=== PATIENT | female | born 1980 | race Caucasian/White ===

== ENCOUNTER 2016-04-25 19:40 | Emergency (ER) | payer MEDICAID ==
[~2016-04-25] VITALS: Ht 152.4 cm; Wt 50.0 kg
[~2016-04-25 19:40] MED LIST: ACET325T33 PO; ASPI1TAB2 PO; CLIN-73 PO; GLIP5TAB13 PO; GUAI-47 PO; HYDR-902 PO; IBUP-1542 PO; LORA1TAB PO; MTF1000T PO; OMEP40CA6 PO; PANT40VI7 ORAL; SITA50TA2 PO; TRAM50TA2 PO
[2016-04-25 20:30] VITALS: Ht 152.4 cm; Wt 50.0 kg
[2016-04-25] MEDS ORDERED: KETOROLAC 60 MG INJ IM STA (21:18)
[2016-04-25] MEDS ORDERED: CYCL-319 PO (21:20)
[2016-04-25] MEDS ORDERED: NAPR-260 PO (21:20)
[2016-04-25] MEDS ORDERED: HYDR-906 PO (21:20)
[2016-04-25 22:00] VITALS: BP 127/79; PULSE 75; RESP 18; TEMP 98.4
--- NOTE | 2016-04-26 04:38 | ERD ---
DATE OF SERVICE: HISTORY OF PRESENT ILLNESS: The patient is a 36-year-old female complaining of upper back pain. Th e patient states it has been going on for the last 4 days. It is constant pain. It is located medi al to the scapula. It hurts worse with movement and it is reproducible. She is not taking medicati ons for her symptoms. Describes it as a sharp pain at 8/10. She has no chest pain, no shortness of breath, no troubles breathing. She has not had any recent accidents or falls. PAST MEDICAL HISTORY: Denies medical problems. ALLERGIES: PENICILLIN. PAST SURGICAL HISTORY: . REVIEW OF SYSTEMS: A 12-point review of systems was done. Refer to HPI for positives. All other s ystems negative. PHYSICAL EXAMINATION VITAL SIGNS: Temperature is 98.2, pulse 95, blood pressure is 136/77, respiratory rate 20, O2 satur ation 98% on room air. Pain intensity 8/10. GENERAL: The patient is well-appearing, well-nourished, no acute distress. HEART: Regular rate and rhythm. No murmurs, clicks, rubs, or gallops. No S3 or S4. CHEST: Clear to auscultation bilaterally. There are no rales, wheezes, or rhonchi. HEENT: Atraumatic. Conjunctivae are pink. Pupils equal, round, and reactive to light. There is n o scleral icterus. Tympanic membranes clear bilaterally. Oropharynx clear. No nystagmus or photop hobia. SKIN: There is no apparent rash or petechia. The skin is warm and dry. EXTREMITIES: The patient has tenderness to palpation over medial to the left scapula. There is no obvious deformity. No midline tenderness. EMERGENCY ROOM COURSE: The patient was given Toradol in the ER. DIAGNOSIS: Rhomboid tendinitis. MEDICAL DECISION MAKING: The patient's pain is reproducible. The patient has full range of motion of extremities. I have low suspicion for PE. Low suspicion for infectious etiology. Low suspicion for acute fracture or dislocation. DISCHARGE: The patient is discharged stable. The patient is given prescription for [place], naproxen , and Flexeril and told to follow up with primary care within 1 to 2 days for reevaluation. The pat ient was told if symptoms progress or worsen to return to the ER. All other questions answered at t elizabeth of discharge. Discharge summary given at the time of departure. The patient understood and com plied with plan. Dictated By: HILARIA HOLMAN/NAYELY Conf#: [id number] DID#: [id number]
== END 2016-04-25 22:08 | disposition home or self-care (01) ==
LOC: FTE 19:40
DX: M77.8 Other enthesopathies, not elsewhere classified (principal); E11.9 Type 2 diabetes mellitus without complications
CPT/HCPCS: 96372; J1885; Z7502

== ENCOUNTER 2016-05-10 08:12 | Emergency (ER) | payer MEDICAID ==
[~2016-05-10] VITALS: Wt 48.5 kg
[~2016-05-10 08:12] MED LIST changes: +CYCL-319 PO; +HYDR-906 PO; +NAPR-260 PO
--- NOTE | 2016-05-10 08:55 | ERD ---
ER Documentation Chief Complaint Date/Time DATE: 05/10/16 TIME: 08:52 Chief Complaint CHEST PAIN SINCE THIS AM HPI This a 36-year-old female who presents the emergency department today complaining of chest pain and some shortness of breath that started last night. Patient states that she has pain when she takes a deep breath. States she took aspirin for the pain. Denies any fevers or chills, oral contraceptive use or prolonged travel. Denies cigarette smoke. ROS All systems reviewed and are negative except as per history of present illness. Medications Home Meds Active Scripts Acetaminophen* (Tylophen*) 500 Mg Capsule, 1 CAP PO Q6H Y for PAIN AND OR ELEVATED TEMP, #30 CAP Prov:PENNIE VITAL PA-C 05/10/16 Naproxen* (Naprosyn*) 500 Mg Tablet, 500 MG PO BID Y for PAIN AND/OR INFLAMMATION, #30 TAB Prov:PENNIE VITAL PA-C 05/10/16 Hydrocodone/Acetaminophen ([place] 5-325 Tablet) 1 Each Tablet, 1 TAB PO Q6H Y for PAIN, #7 TAB Prov:BERTA COMBS PA-C 04/25/16 Cyclobenzaprine Hcl* (Cyclobenzaprine Hcl*) 10 Mg Tablet, 10 MG PO TID, #15 TAB Prov:BERTA COMBS PA-C 04/25/16 Naproxen* (Naprosyn*) 500 Mg Tablet, 500 MG PO BID Y for PAIN AND/OR INFLAMMATION, #30 TAB Prov:BERTA COMBS PA-C 04/25/16 Acetaminophen* (Tylenol*) 325 Mg Tablet, 2 TAB PO Q6 Y for PAIN AND OR ELEVATED TEMP, #20 TAB Prov:RONEL HOPKINS, ROMAIN 02/08/16 Clindamycin Hcl* (Clindamycin Hcl*) 300 Mg Capsule, 600 MG PO TID for 10 Days, CAP Prov:RONEL HOPKINS, ROMAIN 02/08/16 Omeprazole* (Omeprazole*) 40 Mg Capsule.dr, 40 MG PO DAILY, #21 CAP Prov:KYLIE MACKEY DO 12/27/15 Hydrocodone/Acetaminophen ([place] 10-325 Tablet) 1 Each Tablet, 1 TAB PO Q6H Y for PAIN, #18 TAB Prov:KYLIE MACKEY DO 12/27/15 Lorazepam* (Lorazepam*) 1 Mg Tablet, 1 MG PO DAILY for 10 Days, #10 TAB 0 Refills Prov:DAYNE COOPER PA-C 10/31/15 Tramadol HCl (Tramadol HCl) 50 Mg Tablet, 50 MG PO Q4 Y for PAIN, #20 TAB Prov:JENISE SHERMAN MD 10/15/15 Pantoprazole* (Protonix* IV) 40 Mg Soln, 40 MG ORAL DAILY@06 for 30 Days Prov:CHELSIE OLIVAS 02/11/15 Sitagliptin* (Januvia*) 50 Mg Tab, 25 MG PO DAILY for 30 Days, TAB Prov:CHELSIE OLIVAS 02/11/15 Glipizide* (Glipizide*) 5 Mg Tablet, 5 MG PO AC BREAKFAST DINNER for 30 Days, TAB 5 Refills Prov:CHELSIE OLIVAS 02/11/15 Metformin* (Glucophage*) 1,000 Mg Tablet, 1000 MG PO BID for 30 Days, TAB 5 Refills Prov:CHELSIE OLIVAS 02/11/15 Vhferfc-Fkrgrloozxemm-Eynzpbzh* (Excedrin Extra Strength*) 250-250-65 Mg Tablet , 1 TAB PO Q6H Y for PAIN for 30 Days, TAB Prov:DEANN AGUILLON PA-C 11/26/14 Guaifenesin-Dextromethorphan* (Mucinex* DM) 600-30 Mg Tabsr, 1 TAB PO Q12, #14 TAB Prov:JENISE SHERMAN MD 10/25/14 Ibuprofen* (Motrin*) 600 Mg Tab, 600 MG PO Q6, #20 TAB Prov:JENISE SHERMAN MD 10/25/14 Allergies Allergies: Coded Allergies: Penicillins (Verified Allergy, Severe, 05/10/16) PMhx/Soc History of Surgery: Yes ( 8 YEARS AGO ) Anesthesia Reaction: No Hx Neurological Disorder: No Hx Respiratory Disorders: No Hx Cardiac Disorders: No Hx Psychiatric Problems: No Hx Miscellaneous Medical Probl: Yes (DM) Hx Alcohol Use: No Hx Substance Use: No Hx Tobacco Use: No Smoking Status: Never smoker Physical Exam Vitals Vital Signs Date Time Temp Pulse Resp B/P Pulse Ox O2 Delivery O2 Flow Rate FiO2 05/10/16 08:13 98.0 113 18 134/92 99 Physical Exam Const: Anxious Head: Atraumatic Eyes: Normal Conjunctiva ENT: Normal External Ears, Nose and Mouth. Neck: Full range of motion..~ No meningismus. Resp: Clear to auscultation bilaterally. No absent breath sounds. No wheezing. Cardio: Regular rate and rhythm, no murmurs Abd: Soft, mild epigastric tenderness non distended. Normal bowel sounds Skin: No petechiae or rashes Neur: Awake and alert Psych: Normal Mood and Affect Results 24 hrs Current Medications Medications (Trade) Dose Ordered Sig/Peng Route PRN Reason Start Time Stop Time Status Last Admin Dose Admin Lorazepam (Ativan) 1 mg ONCE ONCE PO 05/10/16 09:00 05/10/16 09:01 DC 05/10/16 08:59 Ibuprofen (Motrin) 800 mg ONCE ONCE PO 05/10/16 09:00 05/10/16 09:01 DC 05/10/16 08:59 DIAGNOSTIC IMAGING REPORT Patient: IAN KENNY : 1980 Age: 36 Sex: F MR #: [id number] DOS: 05/10/16 0000 Ordering MD: PENNIE VITAL PA-C Location: [facility] Room/Bed: PROCEDURE: Chest Radiograph. CLINICAL INDICATION: Chest pain. Shortness of breath. TECHNIQUE: Single frontal chest radiograph. COMPARISON: Chest radiograph 10/31/2015. FINDINGS: The cardiomediastinal silhouette is within normal limits. No infiltrate or effusion is seen. The bones are intact. IMPRESSION: 1. Unremarkable chest radiograph. RPTAT: KK .Richard Martinez MD, MD Date Time Electronically viewed and signed by .Richard Martinez MD, MD on 2016 09:15 .B/ CC: PROUSE,PENNIE M. PA-C Procedures/MDM This is a 36-year-old female who presents to the emergency department today complaining of chest pain and shortness of breath that started last night. Patient states her pain is worse with deep inspiration and she described it as substernal and on the left side of her chest. I did ask the patient about stress in her life and she said that she is having a lot of stress because her family in [place] [facility] [place] is having a lot of difficulties. States that she has some pain in her face. Patient has only taken aspirin for pain. Given the patient's complaints I did obtain an EKG and chest x-ray. EKG read and interpreted by Dr. Cassidy [address] elevation. No QT prolongation. Sinus tachycardia. Chest x-ray is unremarkable. There is no infiltrate or effusion. Low suspicion for pneumonia, PE, abscess, pleural effusion, pneumothorax. Patient has chest pain of uncertain etiology however it may be related to anxiety related symptoms given her complaints of pain in her face and inability to sleep at night and her concerns about her family back in [place] [place]. Patient does not have any risk factors for PE at this time. Patient may also have costochondritis. Patient was given Ativan and Motrin here in the emergency department and symptoms improved. When I went to notify patient of EKG and chest x-ray findings patient was telling me that she was not sleeping at night and was requesting medication to help her sleep. Explained to the patient she would need to get this from her primary care doctor that this was not something that was prescribed here in the emergency room at this time.. She will be given a prescription for Tylenol and Naprosyn for home. I do not feel the patient would benefit from benzodiazepines at home as I have concerned that the medication would be used and appropriately or to help her sleep. At this time the patient is stable for discharge and outpatient management. Patient should follow up with their PCP in the next 1-2 days. She was given a list of community resources. They may return to the emergency department sooner for any persistent or worsening of symptoms. Patient understood and agreed with the plan. Departure Diagnosis: Primary Impression: Chest pain Chest pain type: unspecified Qualified Code: R07.9 - Chest pain, unspecified type Additional Impression: Anxiety Condition: PENNIE Howell PA-C May 10, 2016 08:55
[2016-05-10] MEDS ORDERED: LORAZEPAM 1 MG TAB PO ONE (09:00)
[2016-05-10] MEDS ORDERED: IBUPROFEN 800 MG TAB PO ONE (09:00)
--- NOTE | 2016-05-10 09:15 | RADRPT ---
PROCEDURE: Chest Radiograph. CLINICAL INDICATION: Chest pain. Shortness of breath. TECHNIQUE: Single frontal chest radiograph. COMPARISON: Chest radiograph 10/31/2015. FINDINGS: The cardiomediastinal silhouette is within normal limits. No infiltrate or effusion is seen. Th e bones are intact. IMPRESSION: 1. Unremarkable chest radiograph. RPTAT: KK .Richard Martinez MD, MD Date Time Electronically viewed and signed by .Richard Martinez MD, MD on 05/10/2016 09:15 .B/
[2016-05-10] MEDS ORDERED: NAPR-260 PO (10:05)
[2016-05-10] MEDS ORDERED: ACET500C5 PO (10:06)
[2016-05-10 10:14] VITALS: BP 138/78; PULSE 92; RESP 18; TEMP 98
== END 2016-05-10 10:15 | disposition home or self-care (01) ==
LOC: FTE 08:12
DX: R07.9 Chest pain, unspecified (principal); F41.9 Anxiety disorder, unspecified; E11.9 Type 2 diabetes mellitus without complications; Z79.82 Long term (current) use of aspirin; Z79.84 Long term (current) use of oral hypoglycemic drugs
CPT/HCPCS: 71010; 93005; Z7502; Z7610

== ENCOUNTER 2016-08-20 16:55 | Emergency (ER) | payer MEDICAID ==
[~2016-08-20] VITALS: Ht 149.9 cm; Wt 52.0 kg
[~2016-08-20 16:55] MED LIST changes: +ACET500C5 PO
[2016-08-20 17:05] VITALS: Ht 149.9 cm; Wt 52.0 kg
[2016-08-20] MEDS ORDERED: IBUP-1542 PO (17:29)
[2016-08-20] MEDS ORDERED: IBUPROFEN 600 MG TAB PO ONE (17:30)
--- NOTE | 2016-08-20 17:39 | ERD ---
ER Documentation Chief Complaint Date/Time DATE: 08/20/16 TIME: 17:36 Chief Complaint LEFT EAR PAIN X1HR HPI This is a 36-year-old female presents to the ER for left ear pain that started an hour ago after she got water in her ear. Patient states that now she feels as if she can hear clearly in her ear is hurting. Patient was completely asymptomatic before this. Patient denies any fevers or chills. She denies any discharge from the ear. She denies any trauma to the ear. Patient denies any headaches. ROS 12 point review of systems was done, all negative except per HPI. Medications Home Meds Active Scripts Ibuprofen* (Motrin*) 600 Mg Tab, 600 MG PO Q6, #30 TAB Prov:INDIANA BRIGHT 08/20/16 Acetaminophen* (Tylophen*) 500 Mg Capsule, 1 CAP PO Q6H Y for PAIN AND OR ELEVATED TEMP, #30 CAP Prov:PENNIE VITAL PA-C 05/10/16 Naproxen* (Naprosyn*) 500 Mg Tablet, 500 MG PO BID Y for PAIN AND/OR INFLAMMATION, #30 TAB Prov:PENNIE VITAL PA-C 05/10/16 Hydrocodone/Acetaminophen ([place] 5-325 Tablet) 1 Each Tablet, 1 TAB PO Q6H Y for PAIN, #7 TAB Prov:BERTA COMBS PA-C 04/25/16 Cyclobenzaprine Hcl* (Cyclobenzaprine Hcl*) 10 Mg Tablet, 10 MG PO TID, #15 TAB Prov:BERTA COMBS PA-C 04/25/16 Naproxen* (Naprosyn*) 500 Mg Tablet, 500 MG PO BID Y for PAIN AND/OR INFLAMMATION, #30 TAB Prov:BERTA COMBS PA-C 04/25/16 Acetaminophen* (Tylenol*) 325 Mg Tablet, 2 TAB PO Q6 Y for PAIN AND OR ELEVATED TEMP, #20 TAB Prov:RONEL HOPKINS, ROMAIN 02/08/16 Clindamycin Hcl* (Clindamycin Hcl*) 300 Mg Capsule, 600 MG PO TID for 10 Days, CAP Prov:RONEL HOPKINS, ROMAIN 02/08/16 Omeprazole* (Omeprazole*) 40 Mg Capsule.dr, 40 MG PO DAILY, #21 CAP Prov:KYLIE MACKEY DO 12/27/15 Hydrocodone/Acetaminophen ([place] 10-325 Tablet) 1 Each Tablet, 1 TAB PO Q6H Y for PAIN, #18 TAB Prov:KYLIE MACKEY DO 12/27/15 Lorazepam* (Lorazepam*) 1 Mg Tablet, 1 MG PO DAILY for 10 Days, #10 TAB 0 Refills Prov:DAYNE COOPER PA-C 10/31/15 Tramadol HCl (Tramadol HCl) 50 Mg Tablet, 50 MG PO Q4 Y for PAIN, #20 TAB Prov:EJNISE SHERMAN MD 10/15/15 Pantoprazole* (Protonix* IV) 40 Mg Soln, 40 MG ORAL DAILY@06 for 30 Days Prov:CHELSIE OLIVAS 02/11/15 Sitagliptin* (Januvia*) 50 Mg Tab, 25 MG PO DAILY for 30 Days, TAB Prov:CHELSIE OLIVAS 02/11/15 Glipizide* (Glipizide*) 5 Mg Tablet, 5 MG PO AC BREAKFAST DINNER for 30 Days, TAB 5 Refills Prov:CHELSIE OLIVAS 02/11/15 Metformin* (Glucophage*) 1,000 Mg Tablet, 1000 MG PO BID for 30 Days, TAB 5 Refills Prov:CHELSIE OLIVAS 02/11/15 Eqjckzo-Nxeqynezpvupb-Opyclkir* (Excedrin Extra Strength*) 250-250-65 Mg Tablet , 1 TAB PO Q6H Y for PAIN for 30 Days, TAB Prov:DEANN AGUILLON PA-C 11/26/14 Guaifenesin-Dextromethorphan* (Mucinex* DM) 600-30 Mg Tabsr, 1 TAB PO Q12, #14 TAB Prov:JENISE SHERMAN MD 10/25/14 Ibuprofen* (Motrin*) 600 Mg Tab, 600 MG PO Q6, #20 TAB Prov:JENISE SHERMAN MD 10/25/14 Allergies Allergies: Coded Allergies: Penicillins (Verified Allergy, Severe, 08/20/16) PMhx/Soc History of Surgery: Yes ( 8 YEARS AGO ) Anesthesia Reaction: No Hx Neurological Disorder: No Hx Respiratory Disorders: No Hx Cardiac Disorders: No Hx Psychiatric Problems: No Hx Miscellaneous Medical Probl: Yes (DM) Hx Alcohol Use: No Hx Substance Use: No Hx Tobacco Use: No Smoking Status: Never smoker Physical Exam Vitals Vital Signs Date Time Temp Pulse Resp B/P Pulse Ox O2 Delivery O2 Flow Rate FiO2 08/20/16 17:05 99.0 115 20 132/90 98 Physical Exam GENERAL: The patient is well developed and appropriate for usual state of health , in no apparent distress. HEENT: Atraumatic. Conjunctivae are pink. Pupils equal, round, and reactive to light. Extraocular muscles are grossly intact. Bilateral tympanic membranes are clear with no evidence of erythema, effusion or dulling of the light reflex. The oropharynx is clear with no erythema or exudates. There is no redness or swelling to the face. CHEST: Clear to auscultation bilaterally. There are no rales, wheezes or rhonchi. HEART: Regular rate and rhythm. No murmurs, clicks, rubs or gallops. NEURO: Cranial nerves II through XII are intact. No focal neurological deficits. Awake and alert. SKIN: . The skin is warm and dry. Results 24 hrs Current Medications Medications (Trade) Dose Ordered Sig/Peng Route PRN Reason Start Time Stop Time Status Last Admin Dose Admin Ibuprofen (Motrin) 600 mg ONCE ONCE PO 08/20/16 17:30 08/20/16 17:31 DC 08/20/16 17:31 Procedures/MDM This is a 36-year-old female presents to the ER for left ear pain. Patient developed ear pain after she got water in her ear from the shower. At this time physical examination is completely benign suspicion for low. Patient likely cannot hear because there is a lot of water in her ear. I doubt mastoiditis. Doubt intracranial pathology. Patient is neurologically intact with no focal neurological deficits. Patient is to follow-up with her primary care doctor within 1-2 days or return to ER sooner if symptoms worsen. My medical decision making was shared with the patient she understands and agrees with plan. Departure Diagnosis: Primary Impression: Otalgia Condition: Stable Patient Instructions: Normal Exam, (Child) (Adult) Additional Instructions: Llame al doctor MAANA y dael abbi YARIEL PARA DENTRO DE 1-2 SWANSON.Dgale a la secretaria que nosotros le instruimos hacer esta yariel.Avise o llame si pichardo condicin se empeora antes de la yariel. Regresa aqui si peor o no mejor. [place] BRIGHT Aug 20, 2016 17:39
== END 2016-08-20 18:05 | disposition home or self-care (01) ==
LOC: FTE 16:55
DX: H92.02 Otalgia, left ear (principal); E11.9 Type 2 diabetes mellitus without complications; Z79.82 Long term (current) use of aspirin; Z79.84 Long term (current) use of oral hypoglycemic drugs
CPT/HCPCS: Z7502; Z7610; 99283

== ENCOUNTER 2016-10-09 16:27 | Emergency (ER) | payer MEDICAID ==
[~2016-10-09] VITALS: Wt 50.9 kg
[2016-10-09 17:58] LABS: URINE BLOOD (Dip) POC Negative (NEGATIVE)
[2016-10-09] MEDS ORDERED: FLUC150T17 PO (18:19)
[2016-10-09] MEDS ORDERED: MICO24CM3 VAG (18:20)
[2016-10-09] MEDS ORDERED: METR500T PO (18:21)
[2016-10-09 18:33] VITALS: BP 141/81; PULSE 91; RESP 18
--- NOTE | 2016-10-09 18:40 | ERD ---
ER Documentation Chief Complaint Date/Time DATE: 10/09/16 TIME: 18:30 Chief Complaint vaginal itchiness HPI This is a 36-year-old female presents to the ER with vaginal itching for the last 3 days. Patient states that she does have some foul-smelling yellow discharge. Patient has had this in the past that she does have a past medical history of diabetes. Patient denies any fevers or chills. She denies any lesions to her vagina. Patient denies any pelvic pain. ROS 12 point review of systems was done, all negative except per HPI. Medications Home Meds Active Scripts Metronidazole* (Flagyl*) 500 Mg Tablet, 500 MG PO TID for 7 Days, TAB Prov:DEANGELOINDIANA NAVAS Honey 10/09/16 Miconazole Nitrate* (Monistat 3*) 24 Gm Cmb.pf.crm, 1 APPFUL VAG HS for 3 Days, TUB X 3 Prov:DEANGELOINDIANA C 10/09/16 Fluconazole* (Diflucan*) 150 Mg Tablet, 150 MG PO ONCE, #1 TAB Prov:INDIANA BRIGHT 10/09/16 Ibuprofen* (Motrin*) 600 Mg Tab, 600 MG PO Q6, #30 TAB Prov:DEANGELOOLESYAINDIANA C 08/20/16 Acetaminophen* (Tylophen*) 500 Mg Capsule, 1 CAP PO Q6H Y for PAIN AND OR ELEVATED TEMP, #30 CAP Prov:PENNIE VITAL PA-C 05/10/16 Naproxen* (Naprosyn*) 500 Mg Tablet, 500 MG PO BID Y for PAIN AND/OR INFLAMMATION, #30 TAB Prov:PENNIE VITAL PA-C 05/10/16 Hydrocodone/Acetaminophen ([place] 5-325 Tablet) 1 Each Tablet, 1 TAB PO Q6H Y for PAIN, #7 TAB Prov:BERTA COMBS PA-C 04/25/16 Cyclobenzaprine Hcl* (Cyclobenzaprine Hcl*) 10 Mg Tablet, 10 MG PO TID, #15 TAB Prov:BERTA COMBS PA-C 04/25/16 Naproxen* (Naprosyn*) 500 Mg Tablet, 500 MG PO BID Y for PAIN AND/OR INFLAMMATION, #30 TAB Prov:BERTA COMBS PA-C 04/25/16 Acetaminophen* (Tylenol*) 325 Mg Tablet, 2 TAB PO Q6 Y for PAIN AND OR ELEVATED TEMP, #20 TAB Prov:RONEL HOPKINS, ROMAIN 02/08/16 Clindamycin Hcl* (Clindamycin Hcl*) 300 Mg Capsule, 600 MG PO TID for 10 Days, CAP Prov:RONEL HOPKINS, ROMAIN 02/08/16 Omeprazole* (Omeprazole*) 40 Mg Capsule.dr, 40 MG PO DAILY, #21 CAP Prov:KYLIE MACKEY DO 12/27/15 Hydrocodone/Acetaminophen ([place] 10-325 Tablet) 1 Each Tablet, 1 TAB PO Q6H Y for PAIN, #18 TAB Prov:KYLIE MACKEY DO 12/27/15 Lorazepam* (Lorazepam*) 1 Mg Tablet, 1 MG PO DAILY for 10 Days, #10 TAB 0 Refills Prov:DAYNE COOPER PA-C 10/31/15 Tramadol HCl (Tramadol HCl) 50 Mg Tablet, 50 MG PO Q4 Y for PAIN, #20 TAB Prov:JENISE SHERMAN MD 10/15/15 Pantoprazole* (Protonix* IV) 40 Mg Soln, 40 MG ORAL DAILY@06 for 30 Days Prov:CHELSIE OLIVAS 02/11/15 Sitagliptin* (Januvia*) 50 Mg Tab, 25 MG PO DAILY for 30 Days, TAB Prov:CHELSIE OLIVAS 02/11/15 Glipizide* (Glipizide*) 5 Mg Tablet, 5 MG PO AC BREAKFAST DINNER for 30 Days, TAB 5 Refills Prov:CHELSIE OLIVAS 02/11/15 Metformin* (Glucophage*) 1,000 Mg Tablet, 1000 MG PO BID for 30 Days, TAB 5 Refills Prov:CHELSIE OLIVAS 02/11/15 Etfhmdl-Fgrdozbtbvrtj-Gdobwevc* (Excedrin Extra Strength*) 250-250-65 Mg Tablet , 1 TAB PO Q6H Y for PAIN for 30 Days, TAB Prov:DEANN AGUILLON PA-C 11/26/14 Guaifenesin-Dextromethorphan* (Mucinex* DM) 600-30 Mg Tabsr, 1 TAB PO Q12, #14 TAB Prov:JENISE SHERMAN MD 10/25/14 Ibuprofen* (Motrin*) 600 Mg Tab, 600 MG PO Q6, #20 TAB Prov:JENISE SHERMAN MD 10/25/14 Allergies Allergies: Coded Allergies: Penicillins (Verified Allergy, Severe, 10/09/16) PMhx/Soc History of Surgery: Yes ( 8 YEARS AGO ) Anesthesia Reaction: No Hx Neurological Disorder: No Hx Respiratory Disorders: No Hx Cardiac Disorders: No Hx Psychiatric Problems: No Hx Miscellaneous Medical Probl: Yes (DM) Hx Alcohol Use: No Hx Substance Use: No Hx Tobacco Use: No Smoking Status: Never smoker Physical Exam Vitals Vital Signs Date Time Temp Pulse Resp B/P Pulse Ox O2 Delivery O2 Flow Rate FiO2 10/09/16 16:52 98.0 97 20 124/82 97 Physical Exam GENERAL: The patient is well developed and appropriate for usual state of health , in no apparent distress. HEENT: Atraumatic. CHEST: Clear to auscultation bilaterally. There are no rales, wheezes or rhonchi. HEART: Regular rate and rhythm. No murmurs, clicks, rubs or gallops. ABDOMEN: Soft, nontender and nondistended. Good bowel sounds. No rebound or guarding. No gross peritonitis. No gross organomegaly or masses. No Harding sign or McBurney point tenderness. : Vagina is beefy red. No discharge is seen. No cervical motion tenderness. No lesions seen. NEURO: Alert and oriented. Results 24 hrs Laboratory Tests Test 10/09/16 18:04 Bedside Urine pH (LAB) 7.0 Bedside Urine Protein (LAB) 2+ Bedside Urine Glucose (UA) 0.50% Bedside Urine Ketones (LAB) Negative Bedside Urine Blood Negative Bedside Urine Nitrite (LAB) Negative Bedside Urine Leukocyte Esterase (L Negative Procedures/MDM This is a 36-year-old female presents to the ER with vaginal itching. Patient has a past medical history of diabetes and did appear to have vaginal Lakeisha. Because patient was complaining of foul-smelling yellow discharge, also be treated for bacterial vaginosis. There is no evidence of urinary tract infection on urine dip. Patient is afebrile and well-appearing. Suspicion for pyelonephritis, pelvic inflammatory disease, tubo-ovarian abscess is low. Patient is to follow-up with her primary care doctor within 1-2 days or return to ER sooner as worsen. My medical decision making shared with the patient she understands and agrees with plan.``` Departure Diagnosis: Primary Impression: Vaginal candidiasis Condition: Stable Patient Instructions: Vaginitis, Lakeisha Additional Instructions: Call your primary care doctor TOMORROW for an appointment during the next 1-2 days.See the doctor sooner or return here if your condition worsens before your appointment time. [place] BRIGHT Oct 09, 2016 18:35
== END 2016-10-09 18:34 | disposition home or self-care (01) ==
LOC: FTE 16:27
DX: B37.3 Candidiasis of vulva and vagina (principal); E11.9 Type 2 diabetes mellitus without complications; Z79.84 Long term (current) use of oral hypoglycemic drugs; Z79.82 Long term (current) use of aspirin
CPT/HCPCS: 81003; Z7502; 99284

== ENCOUNTER 2017-04-29 19:08 | Emergency (ER) | END 2017-04-29 21:56 | disposition left against medical advice (07) ==